=== PATIENT | female | born 1960 | race Caucasian/White ===

== ENCOUNTER 2019-04-17 17:01 | Emergency (ER) | payer BC, SELFPAY ==
[2019-04-17 17:02] VITALS: BP 145/92; PULSE 97; RESP 14; TEMP 36.3; O2SAT 94; BMI 37.2
--- NOTE | 2019-04-17 17:14 | DI.RAD.S_ITS ---
PROCEDURE: XR CHEST 2V INDICATIONS: shortness of breath TECHNIQUE: 2 views of the chest were acquired. COMPARISON: None. FINDINGS: Surgical changes and devices: None. Lungs and pleura: Lungs are clear. No pleural effusions or pneumothorax. Mediastinum: Mediastinal contours are normal. Heart size is normal. Bones and chest wall: No suspicious bony abnormalities. Soft tissues appear unremarkable. IMPRESSION: Normal for age, source of current shortness of breath symptoms is not seen. Dictated by: Bryon Agrawal M.D. on 04/17/2019 at 18:55 Approved by: Bryon Agrawal M.D. on 04/17/2019 at 18:57
--- NOTE | 2019-04-17 17:34 | DI.CT.S_ITS ---
PROCEDURE: CT HEAD/BRAIN WO CON INDICATIONS: right sided numbness TECHNIQUE: Noncontrast 4.5 mm thick angled axial sections acquired from the foramen magnum to the vertex, with coronal and sagittal reformats. For radiation dose reduction, the following was used: automated exposure control, adjustment of mA and/or kV according to patient size. COMPARISON: None. FINDINGS: Image quality: Excellent. CSF spaces: Basal cisterns are patent. No extra-axial fluid collections. Ventricles are normal in size and shape. Brain: No midline shift. No intracranial masses or hemorrhage. Winchester-white matter interface is normal. Skull and face: Calvarium and visualized facial bones are intact, without suspicious lesions. Sinuses: Visualized sinuses and mastoids are clear. IMPRESSION: 1. No acute intracranial findings. Dictated by: Socorro Sanchez M.D. on 04/17/2019 at 17:01 Approved by: Socorro Sanchez M.D. on 04/17/2019 at 17:02
[2019-04-17 17:40] VITALS: PULSE 91; RESP 17; O2SAT 96
[2019-04-17 17:57] LABS: Add Manual Diff / Slide Review NO; Basophils Absolute Auto 0 /uL (0-100); Basophils Percent Auto 0.3 % (0-2); Eosinophils Absolute Auto 100 /uL (0-450); Eosinophils Percent Auto 1.1 % (2-4); Hematocrit 42.4 % (36-46); Hemoglobin 14.6 g/dL (12.0-16.0); Lymphocytes Absolute Auto 1100 /uL (1100-4500); Lymphocytes Percent Auto 15.1 % (25-40); Mean Corpuscular HGB Conc 34.4 % (30-36); Mean Corpuscular Volume 90.1 fL (80-100); Monocytes Absolute Auto 500 /uL (0-900); Monocytes Percent Auto 6.1 % (3-14); Neutrophils Absolute Auto 5800 /uL (1500-7000); Neutrophils Percent Auto 77.4 % (50-75); Platelet Count 327 X10^3/uL (150-400); Red Blood Cell Count 4.71 X10^6/uL (4.0-5.2); White Blood Cell Count 7.5 X10^3/uL (4.5-11.0)
[2019-04-17 18:01] LABS: Alanine Aminotransferase 28 IU/L (<35); Albumin 4.5 g/dL (3.5-5.0); Albumin Globulin Ratio 1.6 (1.0-2.8); Alkaline Phosphatase 81 U/L (38-126); Aspartate Aminotransferase 41 IU/L (14-36); BUN Creatinine Ratio 18.6 (6-22); Bilirubin Total 0.3 mg/dL (0.2-1.3); Blood Urea Nitrogen 13 mg/dL (7-17); Calcium 9.5 mg/dL (8.4-10.2); Carbon Dioxide 24 mmol/L (22-32); Chloride 103 mmol/L (98-107); Estimated Glomerular Filt Rate > 60.0 mL/min (>60); Globulin 2.9 g/dL (1.7-4.1); Glucose 128 mg/dL (70-100); HEMOLYSIS 24 (0-50); Potassium 4.6 mmol/L (3.4-5.1); Sodium 137 mmol/L (137-145); Total Protein 7.4 g/dL (6.3-8.2)
[2019-04-17 18:30] VITALS: BP 129/74; PULSE 88; RESP 17
--- NOTE | 2019-04-17 19:07 | ED.NEUROSD ---
HPI - Neuro Symptoms/Deficit <TREVOR Dowd - Last Filed: 04/17/19 23:53> General Chief Complaint: Neuro Symptoms/Deficit Stated Complaint: Numbness right side of face and body Time Seen by Provider: 04/17/19 17:34 Source: patient Mode of arrival: Ambulatory Limitations: no limitations History of Present Illness HPI Narrative: This is a pleasant 58 year female, nonsmoker, with history of diabetes type 2 who presents to ED with her spouse with chief complain of right sided facial tingling and numbness which started 3:00 p.m. yesterday and today she has similar tingling and numbness in her right arm and right leg. Patient reports she had cold and numbness sensation to her right leg along with the paresthesia. She had to stop crocheting due to her symptoms. Patient reports history of fused C-spine and also in lower spine by Dr. Mccollum in the past and at times she has exacerbation of discomfort and paresthesia. She reports increasing neck discomfort last a few months and not feeling well last few days. Patient denies fever, chills, nausea or vomiting. Patient denies headache, vision change, chest pain, speech difficulty, breathing difficulty. On Anticoagulants: No Related Data Home Medications Medication Instructions Recorded Confirmed metformin [Glucophage XR] 500 mg PO BID #0 01/02/17 Previous Rx's Medication Instructions Recorded oxycodone 5 - 10 mg PO Q3HP PRN #60 tab 01/09/17 Allergies Allergy/AdvReac Type Severity Reaction Status Date / Time azithromycin [AZITHROMYCIN] Allergy Severe HOT AND Unverified 08/05/17 12:28 RED ALL OVER codeine [CODEINE] Allergy Severe ITCH Unverified 08/05/17 12:28 morphine [MORPHINE] Allergy Severe STOPS Unverified 08/05/17 12:28 BREATHING nitrofurantoin Allergy Severe ANAPHYLAXIS Unverified 08/05/17 12:28 [NITROFURANTOIN] adhesive [ADHESIVE] Allergy Unknown BUBBLES Unverified 08/05/17 12:28 SKIN, PEELS MY SKIN UP GRASSES Allergy Severe THROAT Uncoded 08/05/17 12:28 SWELLING Review of Systems <TREVOR Dowd - Last Filed: 04/17/19 23:53> Review of Systems Narrative: General: Denies fever, chills, fatigue, malaise, sweats. HEENT: Denies sinus pain, ear pain, sore throat, difficulty swallowing, dizziness. Respiratory: Denies dyspnea, cough, wheezing, hemoptysis, sputum. Cardiovascular: Denies chest pain, palpitations, orthopnea, edema. Gastrointestinal: Denies nausea, vomiting, abdominal pain, diarrhea, constipation, melena. : Denies dysuria, frequency, incontinence, hematuria, urinary retention. Musculoskeletal: See HPI Skin: Denies rash, skin lesions, or other. Neurologic: See HPI Psychiatric: No concerning psychosocial issues. 12-point review of systems is negative except for those stated above. Patient History <TREVOR Dowd - Last Filed: 04/17/19 23:53> Medical History Fusion of lumbar spine (Acute) Social History Smoking Status: Never smoker Smoking Status: Never smoker alcohol intake frequency: holidays/special occasions only Substance Use Type: does not use Exam <TREVOR Dowd - Last Filed: 04/17/19 23:53> Narrative Exam Narrative: GEN: Alert, oriented x 3, well appearing and nourished, and in no acute distress. Head: Normal cephalic, atraumatic. No scalp or temporal tenderness, palpable mass or rash. EYES: Pupils are equal, round, and reactive to light and accommodation. Extraocular muscles are intact bilaterally. There is no subconjunctival hemorrhage, exudate and sclera non-icteric. ENT: Bilateral auditory canals and tympanic membranes clear. Hearing grossly intact. Nose without bleeding, purulent discharge, septal hematoma or deviation. Turbinate without erythema or swelling. Facial sinuses nontender to palpate. Mucous membrane moist, no mucosal lesion. Throat without erythema, tonsillar hypertrophy or exudate. Uvula in midline, airway patent. Neck: Trachea in midline. No JVD, non-tender without lymphadenopathy. No masses or thyroid megaly. Supple, non-tender and no meningeal signs. CARDIAC: Normal regular rate and rhythm without murmurs, gallops, or rubs. No chest wall tenderness. No peripheral edema, cyanosis or pallor. Capillary refill is less than 2 seconds. No carotid bruits. RESPIRATORY: Lungs are cleat to auscultate bilaterally. No cough, wheezes, rales, or rhonchi. No stridor, respiratory distress, increase work of breathing, or accessary muscle used. ABD: Abdomen soft, nontender and non-distended. No guarding or rebound tenderness to palpate. Bowel sounds are normal in all 4 quadrants. There is no palpable masses or organomegaly. EXT: Full painless ROM of all extremities with no loss of sensation, strength, effusion or edema. SKIN: Warm, dry, normal color for patient. No erythema, lesions or rash. BACK: Nontender without deformity or crepitance. No flank tenderness. NEUROLOGICAL: Alert and oriented to place, time and person. No facial droops, dysphasia. CN II-XII intact. Strength and sensation symmetric and intact throughout. Reflexes 2+ throughout. Cerebellar testing normal. PSYCHIATRIC: Good judgement and reason, without hallucinations, abnormal affect or abnormal behaviors during the examination. Patient is not suicidal. Initial Vital Signs Initial Vital Signs: Vital Signs Temperature 97.4 F L 04/17/19 17:02 Pulse Rate 97 H 04/17/19 17:02 Respiratory Rate 14 04/17/19 17:02 Blood Pressure 145/92 H 04/17/19 17:02 Pulse Oximetry 94 04/17/19 17:02 <Yecenia Haynes DO - Last Filed: 04/18/19 08:21> Initial Vital Signs Initial Vital Signs: Vital Signs Temperature 97.4 F L 04/17/19 17:02 Pulse Rate 97 H 04/17/19 17:02 Respiratory Rate 14 04/17/19 17:02 Blood Pressure 145/92 H 04/17/19 17:02 Pulse Oximetry 94 04/17/19 17:02 Scores <TREVOR Dowd - Last Filed: 04/17/19 23:53> GCS Lew coma scale eye opening: Spontaneous [place] coma scale verbal response: Orientated Lew coma scale motor response: Obey commands Lew coma scale total score: 15 NIH Stroke Scale Level of Conciousness: Alert, keenly responsive Ask month/age: Answers both questions correctly. Open/close eyes, close hand: Performs both tasks correctly Best gaze horizontal: Normal Visual loco: No visual loss Facial palsy: Normal symetrical movement Left arm drift: No drift for full 10 sec Right arm drift: No drift for full 10 sec Left leg drift: No drift for full 10 sec Right leg drift: No drift for full 10 sec Limb ataxia: Absent Sensory on face/arms/legs: Normal, no sensory loss Best language: No aphasia, normal Dysarthria: Normal Extinction or inattention: No abnormality Total NIH Stroke scale score: 0 Course <TREVOR Dowd - Last Filed: 04/17/19 23:53> Orders Ordered: Discontinued Medications Aspirin (Aspirin Ec) 81 mg PO NOW ONE Stop: 04/17/19 19:08 Last Admin: 04/17/19 19:26 Dose: 81 mg Documented by: GUCCI Vital Signs Vital signs: Vital Signs - 8 hr 04/17/19 17:02 04/17/19 17:40 04/17/19 18:30 Temperature 97.4 F L Pulse Rate 97 H 91 H 88 Respiratory Rate 14 17 17 Blood Pressure 145/92 H Blood Pressure [Left Arm] 129/74 Pulse Oximetry 94 96 04/17/19 19:34 Temperature Pulse Rate 91 H Respiratory Rate 16 Blood Pressure 120/79 Blood Pressure [Left Arm] Pulse Oximetry 96 <Yecenia Haynes DO - Last Filed: 04/18/19 08:21> Orders Ordered: Discontinued Medications Aspirin (Aspirin Ec) 81 mg PO NOW ONE Stop: 04/17/19 19:08 Last Admin: 04/17/19 19:26 Dose: 81 mg Documented by: GUCCI Vital Signs Vital signs: Vital Signs - 8 hr 04/17/19 17:02 04/17/19 17:40 04/17/19 18:30 Temperature 97.4 F L Pulse Rate 97 H 91 H 88 Respiratory Rate 14 17 17 Blood Pressure 145/92 H Blood Pressure [Left Arm] 129/74 Pulse Oximetry 94 96 04/17/19 19:34 Temperature Pulse Rate 91 H Respiratory Rate 16 Blood Pressure 120/79 Blood Pressure [Left Arm] Pulse Oximetry 96 MDM - Neuro Symptoms/Deficit <TREVOR Dowd - Last Filed: 04/17/19 23:53> Differential Diagnosis Differential diagnosis: Likely peripheral neuropathy, cerebrovascular accident, transient cerebral ischemia and other Medical Records Attestation: I reviewed the patient's medical records. Lab Data Attestation: I reviewed the patient's lab results. Result diagrams: 04/17/19 17:42 04/17/19 17:42 Labs: Lab Results 04/17/19 04/17/19 Range/Units 17:42 17:42 WBC 7.5 (4.5-11.0) X10^3/uL RBC 4.71 (4.0-5.2) X10^6/uL Hgb 14.6 (12.0-16.0) g/dL Hct 42.4 (36-46) % MCV 90.1 (80-100) fL MCH 31.0 (26-34) PG MCHC 34.4 (30-36) % RDW 13.0 (11.6-14.8) % Plt Count 327 (150-400) X10^3/uL Neut % (Auto) 77.4 H (50-75) % Lymph % (Auto) 15.1 L (25-40) % Garfield % (Auto) 6.1 (3-14) % Eos % (Auto) 1.1 L (2-4) % Baso % (Auto) 0.3 (0-2) % Neut # (Auto) 5800 (8602-2075) /uL Lymph # (Auto) 1100 (3098-2515) /uL Garfield # (Auto) 500 (0-900) /uL Eos # (Auto) 100 (0-450) /uL Baso # (Auto) 0 (0-100) /uL Sodium 137 (137-145) mmol/L Potassium 4.6 (3.4-5.1) mmol/L Chloride 103 (98-107) mmol/L Carbon Dioxide 24 (22-32) mmol/L BUN 13 (7-17) mg/dL Creatinine 0.70 (0.52-1.04) mg/dL Estimated GFR > 60.0 (>60) mL/min BUN/Creatinine Ratio 18.6 (6-22) Glucose 128 H (70-100) mg/dL Calcium 9.5 (8.4-10.2) mg/dL Total Bilirubin 0.3 (0.2-1.3) mg/dL AST 41 H (14-36) IU/L ALT 28 (<35) IU/L Alkaline Phosphatase 81 (38-126) U/L Total Protein 7.4 (6.3-8.2) g/dL Albumin 4.5 (3.5-5.0) g/dL Globulin 2.9 (1.7-4.1) g/dL Albumin/Globulin Ratio 1.6 (1.0-2.8) Point of Care Testing Glucose POC 126 Imaging Data Chest x-ray: Radiologist's impression: [address] [address] XRay Report Signed Patient: Balbina Garcia R#: [id number] : 1960Acct:[id number] Age/Sex: 58 / FDate of Service: 04/17/19 Loc: ED Accession Number: [id number] Procedure: XR chest 2V Ordering Provider: Yecenia Haynes D.O. PROCEDURE: XR CHEST 2V INDICATIONS: shortness of breath TECHNIQUE: 2 views of the chest were acquired. COMPARISON: None. FINDINGS: Surgical changes and devices: None. Lungs and pleura: Lungs are clear. No pleural effusions or pneumothorax. Mediastinum: Mediastinal contours are normal. Heart size is normal. Bones and chest wall: No suspicious bony abnormalities. Soft tissues appear unremarkable. IMPRESSION: Normal for age, source of current shortness of breath symptoms is not seen. Dictated by: Bryon Agrawal M.D. on 04/17/2019 at 18:55 Approved by: Bryon Agrawal M.D. on 04/17/2019 at 18:57 CT scan - head: Radiologist's impression: [address] [address] [address] Scan Report Signed Patient: Balbina Garcia R#: [id number] : 1960Acct:[id number] Age/Sex: 58 / FDate of Service: 04/17/19 Loc: ED Accession Number: [id number] Procedure: CT head/brain wo con Ordering Provider: Yecenia Haynes D.O. PROCEDURE: CT HEAD/BRAIN WO CON INDICATIONS: right sided numbness TECHNIQUE: Noncontrast 4.5 mm thick angled axial sections acquired from the foramen magnum to the vertex, with coronal and sagittal reformats. For radiation dose reduction, the following was used: automated exposure control, adjustment of mA and/or kV according to patient size. COMPARISON: None. FINDINGS: Image quality: Excellent. CSF spaces: Basal cisterns are patent. No extra-axial fluid collections. Ventricles are normal in size and shape. Brain: No midline shift. No intracranial masses or hemorrhage. [place]ster-white matter interface is normal. Skull and face: Calvarium and visualized facial bones are intact, without suspicious lesions. Sinuses: Visualized sinuses and mastoids are clear. IMPRESSION: 1. No acute intracranial findings. Dictated by: Socorro Sanchez M.D. on 04/17/2019 at 17:01 Approved by: Socorro Sanchez M.D. on 04/17/2019 at 17:02 ECG Data Attestation: I personally reviewed and interpreted this ECG as follows: Interpretation: SR rate at 91. Low QRS voltage in precordial leads No specific T wave abnormalty Incomplete RBBB in V1/V2 No significant changes in EKG MDM Narrative Medical decision making narrative: This is a 58 year female who presents to ED with right-sided facial, right-sided upper and lower extremity numbness and coolness. Patient has history of C-spine and L-spine fusion in the past and occasional exacerbation of neck discomfort. Head CT test result shows no acute findings of cranial masses or hemorrhage. EKG w/o changes from previous test with SR rate at 91 with nonspecific T-wave abnormality. CBC and CMP tests were unremarkable. NIHSS score was 0. Vital signs stable in ED. patient was medicated with baby aspirin before discharged to home and advised to continue with this until she is evaluated by her primary care physician and discuss about this. Informed patient about today's diagnostic testing and physical exam results. Informed patient and spouse that her symptoms are likely from peripheral paresthesia related to C-spine and lumbar spine problem versus TIA. Patient advised to follow-up closely with her primary care physician for further imaging test such as CTA, MRI, carotid US doppler test and further evaluation. Strict return precautions were discussed with the patient and to call 911 if her symptoms recur. Patient and spouse verbalized the understanding and agrees with the treatment plan. <Yecenia Haynes, DO - Last Filed: 04/18/19 08:21> Lab Data Labs: Lab Results 04/17/19 04/17/19 Range/Units 17:42 17:42 WBC 7.5 (4.5-11.0) X10^3/uL RBC 4.71 (4.0-5.2) X10^6/uL Hgb 14.6 (12.0-16.0) g/dL Hct 42.4 (36-46) % MCV 90.1 (80-100) fL MCH 31.0 (26-34) PG MCHC 34.4 (30-36) % RDW 13.0 (11.6-14.8) % Plt Count 327 (150-400) X10^3/uL Neut % (Auto) 77.4 H (50-75) % Lymph % (Auto) 15.1 L (25-40) % Garfield % (Auto) 6.1 (3-14) % Eos % (Auto) 1.1 L (2-4) % Baso % (Auto) 0.3 (0-2) % Neut # (Auto) 5800 (4235-9867) /uL Lymph # (Auto) 1100 (9505-0235) /uL Garfield # (Auto) 500 (0-900) /uL Eos # (Auto) 100 (0-450) /uL Baso # (Auto) 0 (0-100) /uL Sodium 137 (137-145) mmol/L Potassium 4.6 (3.4-5.1) mmol/L Chloride 103 (98-107) mmol/L Carbon Dioxide 24 (22-32) mmol/L BUN 13 (7-17) mg/dL Creatinine 0.70 (0.52-1.04) mg/dL Estimated GFR > 60.0 (>60) mL/min BUN/Creatinine Ratio 18.6 (6-22) Glucose 128 H (70-100) mg/dL Calcium 9.5 (8.4-10.2) mg/dL Total Bilirubin 0.3 (0.2-1.3) mg/dL AST 41 H (14-36) IU/L ALT 28 (<35) IU/L Alkaline Phosphatase 81 (38-126) U/L Total Protein 7.4 (6.3-8.2) g/dL Albumin 4.5 (3.5-5.0) g/dL Globulin 2.9 (1.7-4.1) g/dL Albumin/Globulin Ratio 1.6 (1.0-2.8) Point of Care Testing Glucose POC 126 Discharge Plan Departure Patient Disposition: Home Clinical Impression: Paresthesia and pain of left extremity Discharge Date/Time: 04/17/19 19:36 Instructions: DI for Numbness/tingling Activity Restrictions/Additional Instructions: You have been diagnosed with [left-sided limb and facial paresthesia. CT of head w/o acute intracranial findings and chest Xray was unremarkable. Blood test was unremarkable as well. You were treated with baby ASA before dc to home. Nuero exam was benign. EKG test was unremarkable and no changes from previous EKG]. What to do: *Take your medications as directed. Please take daily baby aspirin until your re-evaluated by your doctor. You may need further imaging test such as CTA, MRI, carotid artery ultrasound test for your symptoms. *Follow up with your primary care provider in 2-3 days, call for an appointment. Let them know you were seen in the ED and that we asked you to be seen in follow up. *Return to ED if you have any new, worsening, or concerning symptoms, such as [limb weakness, vision change, headache, chest pain, breathing difficulty, balance problem, speech difficulty, facial droops or any acute concerns. If these occurs please call 911.]. Prescriptions: No Action metformin [Glucophage XR] 500 MG tablet extended release 24 hr 500 mg PO BID Qty: 0 RF: 0 oxycodone 5 MG tablet 5 - 10 mg PO Q3HP PRNQty: 60 RF: 0 Referrals: Nissa Grace PA-C [Primary Care Provider] -
[2019-04-17] MEDS: ASPIRIN EC 81 MG TABLET PO (19:26)
[2019-04-17 19:34] VITALS: BP 120/79; PULSE 91; RESP 16; O2SAT 96
== END 2019-04-17 19:36 | disposition home or self-care (01) ==
PROVIDERS: Emergency Medicine; Emergency Provider Nurse Practitioner Family; Family Provider Physician Assistant Medical; PCP Physician Assistant Medical
DX: R20.2 Paresthesia of skin (principal)
CPT/HCPCS: 36415; 70450; 71046; 80053; 82962; 85025; 93005; 93010; 99284; 99285